=== PATIENT | female | born 1980 | race Caucasian/White ===

== ENCOUNTER → 2017-01-13 | Outpatient (CLI) | payer BC | LOC: LAB 11:55 | DX: R53.83 Other fatigue (principal); E63.9 Nutritional deficiency, unspecified; E55.9 Vitamin D deficiency, unspecified; E56.8 Deficiency of other vitamins; H53.9 Unspecified visual disturbance; R13.0 Aphagia; R00.2 Palpitations; F41.1 Generalized anxiety disorder ==

== ENCOUNTER → 2018-08-29 | Outpatient (CLI) | payer OTHER ==
[2018-08-29 10:54] LABS: EOS # 0.1 (0.04-0.40); EOS % 1.6 % (1.0-5.0); HEMATOCRIT 39.8 % (37.0-47.0); LYMPH# 1.4 (1.50-4.00); MEAN CELL VOLUME 91 fl (78-100); MEAN CORPUSCULAR HEMOGLOBIN 30 pg (27-31); MEAN CORPUSCULAR HGB CONC 33 g/dL (33-37); MEAN PLATELET VOLUME 10.1 fl (7.4-10.4); MONO # 0.3 (0.20-0.80); NEU # 3.3 (1.40-6.50); PLATELET COUNT 315 K/mm3 (130-400); RED BLOOD COUNT 4.36 M/mm3 (4.10-5.30); RED CELL DISTRIBUTION WIDTH 13.1 % (11.5-14.5); WHITE BLOOD COUNT 5.1 K/mm3 (4.8-10.8)
[2018-08-29 11:16] LABS: ALBUMIN 4.8 g/dL (3.5-5.0); CALCIUM 9.5 mg/dL (8.4-10.2); POTASSIUM 3.6 mmol/L (3.6-5.0); TOTAL BILIRUBIN 0.5 mg/dL (0.2-1.3); TOTAL PROTEIN 7.8 g/dL (6.3-8.2)
[2018-08-29 11:35] LABS: URINE APPEARANCE CLEAR; URINE BILIRUBIN NEGATIVE (NEGATIVE); URINE BLOOD NEGATIVE (NEGATIVE); URINE COLOR YELLOW; URINE GLUCOSE NEGATIVE (NEGATIVE); URINE KETONE NEGATIVE (NEGATIVE); URINE LEUKOCYTE ESTERASE NEGATIVE (NEGATIVE); URINE NITRATE NEGATIVE (NEGATIVE); URINE PROTEIN(semi-quant) NEGATIVE (NEGATIVE); URINE UROBILINOGEN NORMAL (NORMAL)
[2018-08-30 02:48] LABS: FOLATE (FOLIC ACID) 8.7 ng/mL (7.0-31.4)
[2018-08-30 03:24] LABS: INSULIN 7 uIU/mL (2-23)
[2018-08-31 12:54] LABS: LIPOPROTEIN A 15 mg/dL (<=30)
[2018-08-31 15:51] LABS: .COPPER,S 1.46 mcg/mL (())
[2018-09-01 04:09] LABS: T3 FREE 2.5 pg/mL (1.7-3.7)
[2018-09-01 07:50] LABS: VITAMIN B1 136 nmol/L (70-180)
[2018-09-01 14:20] LABS: VITAMIN A 66.5 mcg/dL (())
[2018-09-02 21:51] LABS: SELENIUM, SERUM AMS
== END ==
LOC: LAB 09:44
DX: R00.2 Palpitations (principal); R53.83 Other fatigue; E63.9 Nutritional deficiency, unspecified; Z33.1 Pregnant state, incidental

== ENCOUNTER → 2019-02-23 | Outpatient (CLI) | payer OTHER ==
[~2019-02-23] MED LIST: D3 + K2 DOTS 11 EACH PO; SEPTRA DS 8001 TAB PO
== END ==
LOC: LAB 17:07
DX: R30.0 Dysuria (principal)

== ENCOUNTER 2019-02-24 16:42 | Emergency (ER) | payer OTHER ==
[~2019-02-24] VITALS: Ht 167.6 cm; Wt 65.9 kg
[2019-02-24] MEDS ORDERED: D3 + K2 DOTS 11 EACH PO (16:55)
[2019-02-24 17:28] LABS: HEMOGLOBIN 10.8 g/dL (12.5-16.0); MEAN CELL VOLUME 91 fl (78-100); MEAN CORPUSCULAR HEMOGLOBIN 30 pg (27-31); MEAN CORPUSCULAR HGB CONC 33 g/dL (33-37); MEAN PLATELET VOLUME 9.6 fl (7.4-10.4); PLATELET COUNT 365 K/mm3 (130-400); RED BLOOD COUNT 3.64 M/mm3 (4.10-5.30); RED CELL DISTRIBUTION WIDTH 12.8 % (11.5-14.5); WHITE BLOOD COUNT 10.3 K/mm3 (4.8-10.8)
[2019-02-24 17:33] LABS: ALBUMIN 3.9 g/dL (3.5-5.0)
[2019-02-24 17:34] LABS: POTASSIUM 3.5 mmol/L (3.5-5.1)
[2019-02-24 17:35] LABS: CALCIUM 9.8 mg/dL (8.3-10.5)
[2019-02-24 17:36] LABS: TOTAL PROTEIN 6.9 g/dL (6.4-8.3)
[2019-02-24 17:38] LABS: TOTAL BILIRUBIN 0.5 mg/dL (0.2-1.2)
[2019-02-24 17:50] LABS: LYMPHOCYTE 5 % (20-51); MONOCYTE 3 % (3-10); NEUTROPHILS 90 % (42-75)
[2019-02-24 18:27] LABS: PH-URINE 6.5 (5.0 - 8.0); URINE APPEARANCE CLEAR; URINE COLOR YELLOW; URINE PROTEIN(semi-quant) NEGATIVE (NEGATIVE)
[2019-02-24 18:28] LABS: URINE BILIRUBIN NEGATIVE (NEGATIVE); URINE BLOOD NEGATIVE (NEGATIVE); URINE GLUCOSE NEGATIVE (NEGATIVE); URINE KETONE NEGATIVE (NEGATIVE); URINE LEUKOCYTE ESTERASE 1+ (NEGATIVE); URINE NITRATE NEGATIVE (NEGATIVE); URINE UROBILINOGEN NORMAL (NORMAL); URINE WBC 16-30 /hpf (0-3)
[2019-02-24] MEDS ORDERED: SEPTRA DS 8001 TAB PO (18:55)
[2019-02-24 19:45] VITALS: BP 107/63
== END 2019-02-24 19:52 | disposition home or self-care (01) ==
LOC: ED 16:42
PROVIDERS: Family Medicine
DX: N39.0 Urinary tract infection, site not specified (principal); M54.42 Lumbago with sciatica, left side
CPT/HCPCS: J0696

== ENCOUNTER 2019-09-19 01:56 | Emergency (ER) | payer OTHER ==
[~2019-09-19] VITALS: Ht 167.6 cm; Wt 68.2 kg
[2019-09-19] MEDS ORDERED: PRENATE ELITE1 TA3 PO (02:03)
[2019-09-19 03:07] VITALS: BP 123/72
== END 2019-09-19 03:07 | disposition home or self-care (01) ==
LOC: ED 01:56
DX: H69.92 Unspecified Eustachian tube disorder, left ear (principal)